=== PATIENT | female | born 1980 | race Caucasian/White ===

== ENCOUNTER 2019-01-31 14:15 | Inpatient (IN) | END 2019-02-03 14:55 | DRG 59 | DX: G35 Multiple sclerosis (principal); H46.9 Unspecified optic neuritis; G83.84 Todd's paralysis (postepileptic); R56.9 Unspecified convulsions; G83.24 Monoplegia of upper limb affecting left nondominant side; E83.51 Hypocalcemia; D72.829 Elevated white blood cell count, unspecified; T38.0X5A Adverse effect of glucocorticoids and synthetic analogues, initial encounter; Y92.230 Patient room in hospital as the place of occurrence of the external cause; F17.210 Nicotine dependence, cigarettes, uncomplicated; Z79.899 Other long term (current) drug therapy ==

== ENCOUNTER 2019-02-03 13:19 | Inpatient (IN) | payer MEDICARE, OTHER ==
[~2019-02-03] VITALS: Ht 167.6 cm; Wt 56.2 kg
[~2019-02-03 13:19] MED LIST: ACET325T53 PO; HYDR-3326 PO; LEVE500T9 PO; MAGN400O6 PO; MENT71OI TOP; NATA300V2 IV; PRED20TA PO
[2019-02-03] MEDS ORDERED: LORAZEPAM 1 MG TABLET PO PRN (15:15)
--- NOTE | 2019-02-03 15:15 | NUR ---
Patient arrived on this at this time via wheelchair, Vitals: 96/59, 96% on room air, 18 respirations, 58 heart rate, no complaints of pain, no signs of distress noted, MISTY Winter made aware of patient's arrival, MD Oconnell made aware of patients arrival on the unit, MRSA swab taken of both nares, patients family states they will take all belongings and won't leave any with the patient, all needs met at this time
[2019-02-03] MEDS ORDERED: Z GUARD REMEDY PASTE 57 GM TUBE TOP PRN (15:30)
[2019-02-03] MEDS ORDERED: HOME MED MISCELLANEOUS XX SCH (15:30)
[2019-02-03] MEDS ORDERED: ACETAMINOPHEN 325 MG TABLET PO PRN (15:30)
[2019-02-03] MEDS ORDERED: MAGNESIUM HYDROXIDE 30 ML LIQUID UDC PO PRN (15:30)
[2019-02-03] MEDS ORDERED: HYDROCODONE/APAP 5-325MG TABLET PO PRN (15:30)
[2019-02-03 16:00] VITALS: BP 96/59
--- NOTE | 2019-02-03 19:45 | NUR ---
Received patient awake in bed, stable condition; AAO x4. Room air, tolerating well. Vital signs are within normal limits. No complaints of pain at this moment. Physical assessment done. Skin assessment done. Fall prevention observed. Bed is in low and locked position, side rails up x2 for safety; bed alarm is on. Call light and frequently used items are within reach. Provided all needed education, including on how to use call light. Family members at bedside. Will continue to monitor and give care.
[2019-02-03] MEDS: levETIRAcetam 500 MG TABLET PO SCH (20:24)
[2019-02-03 20:40] VITALS: BP 99/57
[2019-02-04 05:17] VITALS: BP 99/61
--- NOTE | 2019-02-04 07:53 | NUR ---
Patient noted resting in bed with eyes closed, no facial cues of pain at this time, no signs of distress noted, sister noted at bedside, call light in reach, bed locked and in lowest position, all needs met at this time, will continue to plan of care
[2019-02-04] MEDS ORDERED: predniSONE 20 MG TABLET PO SCH (09:00)
[2019-02-04] MEDS: levETIRAcetam 500 MG TABLET PO SCH ×2 (09:03→20:28)
[2019-02-04] MEDS: predniSONE 20 MG TABLET PO SCH (09:08)
[2019-02-04 09:22] VITALS: BP 110/59
--- NOTE | 2019-02-04 11:36 | NUR ---
Social Work Note: Auditor Appraiser met with patient today and discussed options for counseling and therapy services. Patient's sister, Barbara Rosas and mother Sonia Rosas were present during interview who stated that patient's mood and behaviors at home are very withdrawn and depressed. Also stating that pt does not leave her room or engage in social conversations. Pt's sister, Barbara stated that when pt was in the medical floor a psychiatric evaluation was ordered but not conducted as pt was transferred to [facility]. This technical publications writer informed [facility] case management that pt might need a psychiatric evaluation and the family is requesting it.
[2019-02-04 16:26] VITALS: BP 91/56
[2019-02-04 20:20] VITALS: BP 115/59
--- NOTE | 2019-02-05 04:57 | NUR ---
quiet night. slept well most of the shift. Sister in with patient. No acute distress noted. Call esteban within reach. Fall precautions maintained. VSS. Voiding well. No seizure activity noted. Will monitor patient.
[2019-02-05 05:47] VITALS: BP 101/63
[2019-02-05 07:56] VITALS: BP 93/50
[2019-02-05] MEDS: levETIRAcetam 500 MG TABLET PO SCH ×2 (08:19→20:17)
[2019-02-05] MEDS: predniSONE 20 MG TABLET PO SCH (08:20)
--- NOTE | 2019-02-05 09:43 | NUR ---
Received patient in bed awake, greeted patient; sister also at bed side. Pt. is AAOx4, No acute distress noted. Vital signs taken and stable for patient. Denies any pain at this time. Morning medications administered and tolerated. Patient cooperative with care. Safety measures in place and discussed with patient. Call light left at bed side and will continue with care.
[2019-02-05 15:16] VITALS: BP 111/71
--- NOTE | 2019-02-05 18:39 | NUR ---
Patient in bed watching TV denies pain at this time. Vital signs stable for patient. Patient on PT/OT therapy with one person assist. Family at bed side at all times. Pt. took shower during shift. Needs met, safety measures in place and will continue with care.
--- NOTE | 2019-02-05 20:34 | NUR ---
Received pt resting in bed and talking on the phone. AAO x4. Family at bedside. No acute distress noted. Denies pain/ discomfort. Due med given as ordered. Seizure and fall prevention implemented. Safety measures maintained. Call light and personal items within reach. Will continue to monitor.
[2019-02-05 20:52] VITALS: BP 103/64
[2019-02-06 04:30] VITALS: BP 90/54
[2019-02-06 08:18] VITALS: BP 92/54
[2019-02-06 08:54] LABS: BASOPHILS % (AUTO) 0.1 % (0.0-2.0); EOSINOPHILS # (AUTO) 0.1 K/uL (0.0-0.7); EOSINOPHILS % (AUTO) 1.1 % (0.0-7.0); HEMATOCRIT 39.2 % (31.2-41.9); LYMPHOCYTES # (AUTO) 2.9 K/uL (20.0-40.0); MEAN CORPUSCULAR HEMOGLOBIN 30.2 uug (24.7-32.8); MEAN CORPUSCULAR HGB CONC 33 g/dL (32.3-35.6); MEAN CORPUSCULAR VOLUME 90.7 fL (75.5-95.3); MONOCYTES # (AUTO) 0.3 K/uL (2.0-10.0); MONOCYTES % (AUTO) 3.5 % (0.0-11.0); NEUTROPHILS # (AUTO) 6.5 K/uL (1.8-8.9); NEUTROPHILS % (AUTO) 66.3 % (38.5-71.5); PLATELET COUNT (AUTO) 277 K/uL (179-408); RED BLOOD CELL COUNT(AUTO) 4.32 MIL/uL (3.63-4.92); WHITE BLOOD COUNT (AUTO) 9.9 K/uL (3.8-11.8)
[2019-02-06] MEDS: predniSONE 20 MG TABLET PO SCH (08:59)
[2019-02-06] MEDS: levETIRAcetam 500 MG TABLET PO SCH ×2 (08:59→20:53)
[2019-02-06 09:36] LABS: BILIRUBIN,TOTAL 0.5 mg/dL (0.2-1.0); CREATININE 0.7 mg/dL (0.6-1.3); MAGNESIUM 2.2 mg/dL (1.8-2.4); PHOSPHOROUS 4.5 mg/dL (2.5-4.9); POTASSIUM 3.5 mmol/L (3.5-5.1); TOTAL PROTEIN, SERUM 6.2 g/dL (6.4-8.2)
--- NOTE | 2019-02-06 10:40 | NUR ---
INDIVIDUALIZE OVERALL PLAN OF CARE
[2019-02-06] MEDS: CYANOCOBALAMIN 1000 MCG/ML VIAL IM SCH (12:14)
[2019-02-06 14:58] VITALS: BP 120/73
--- NOTE | 2019-02-06 16:19 | NUR ---
Patient is AAO x 4. No acute distress. able to express needs verbally. No C/O pain at this time. No s/sx of seizure activity noted during shift. Patient toll all meds as scheduled and tolerated. Family (sister) asked for Psych consult for patient. Called sound controller for Psych Dr. Mcgrath spoke with Dr. Mcgrath regarding consultation and informed Dr. patient will be discharged tomorrow on 02/07/19, stated patient needs to F/U with outpatient Psych consult stating he can't see a patient on the same day patient is being discharged. Informed family. All other needs attended, safety measures in place, call light left at bed side and will continue with care.
[2019-02-06 21:39] VITALS: BP 99/70
[2019-02-07 05:55] VITALS: BP 95/63
[2019-02-07 07:53] VITALS: BP 92/51
[2019-02-07] MEDS: predniSONE 20 MG TABLET PO SCH (09:06)
[2019-02-07] MEDS: levETIRAcetam 500 MG TABLET PO SCH ×2 (09:06→21:31)
[2019-02-07] MEDS: CYANOCOBALAMIN 1000 MCG/ML VIAL IM SCH (09:10)
--- NOTE | 2019-02-07 09:31 | NUR ---
PATIENT FOR PSYCH CONSULT. MD MILLARD NOTIFIED. AGREE TO COME. DISCHARGE MOVE GLO FOR PSYCH CONSULT.
[2019-02-07 15:29] VITALS: BP 111/69
--- NOTE | 2019-02-07 18:15 | NUR ---
Patient AAO x4. NO new change of conditions noted. Vital signs are stable for patient. Patient seen by Dr. Mcgrath with no new order. Patient in a process for discharge tomorrow. Patient and family made aware. NO s/sx of seizures noted during shift. ON PT/OT therapy. No c/o pain throughout shift. Family with patient at all times. Needs met, safety measures in place, call light left within easy reach and will continue with care.
--- NOTE | 2019-02-07 19:50 | NUR ---
RECEIVED PATIENT AWAKE IN BED. AO X 4. MOTHER AT THE BEDSIDE. NO COMPLAINTS OF PAIN/ DISCOMFORT. IN NO APPARENT DISTRESS AT THE MOMENT. FALL PRECAUTIONS/ SEIZURE PRECAUTIONS IN PLACE. CALL LIGHT WITHIN REACH. WILL CONTINUE TO MONITOR.
[2019-02-07 20:28] VITALS: BP 108/66
[2019-02-07 22:00] VITALS: BP 108/66
[2019-02-08 05:24] VITALS: BP 94/50
[2019-02-08 07:42] VITALS: BP 96/56
--- NOTE | 2019-02-08 08:00 | NUR ---
Received patient awake in bed. AAOx4. Mother at bedside. No s/s of acute distress. No SOB noted. Seizure precautions observed. Will continue to monitor.
[2019-02-08] MEDS: CYANOCOBALAMIN 1000 MCG/ML VIAL IM SCH (08:55)
[2019-02-08] MEDS: levETIRAcetam 500 MG TABLET PO SCH (08:55)
[2019-02-08] MEDS ORDERED: predniSONE 20 MG TABLET PO SCH (09:00)
--- NOTE | 2019-02-08 10:44 | NUR ---
Social Work Note: ornamental iron worker apprentice met with patient today to reassess her level of depression. Patient continues to minimize her feelings and her presenting problems. ornamental iron worker apprentice provided patient with a list of medicare accepting psychologists and therapists that are available to her.
--- NOTE | 2019-02-08 12:24 | NUR ---
Discharge orders in place. Patient to be discharged to home. Vital signs are stable. No s/s of acute distress. Exit care and education provided regarding new prescription and importance of continuity of care. Patient advised to continue outpatient therapy and f/u with neurologist. ID band removed.
[2019-02-12] MEDS ORDERED: predniSONE 20 MG TABLET PO SCH (09:00)
== END 2019-02-08 12:24 | disposition home or self-care (01) | DRG 60 ==
PROVIDERS: ADMIT Physical Medicine & Rehabilitation Pain Medicine; ATTEND Physical Medicine & Rehabilitation Pain Medicine
DX: G35 Multiple sclerosis (principal); H54.62 Unqualified visual loss, left eye, normal vision right eye; G83.84 Todd's paralysis (postepileptic); G40.909 Epilepsy, unspecified, not intractable, without status epilepticus; F17.210 Nicotine dependence, cigarettes, uncomplicated; R53.1 Weakness; F41.9 Anxiety disorder, unspecified
CPT/HCPCS: 36415; 82652; 83735; 84100; 85025; J3420; J7512

== ENCOUNTER 2019-10-18 18:55 | Inpatient (IN) | payer MEDICARE, OTHER ==
[~2019-10-18] VITALS: Ht 172.7 cm; Wt 51.9 kg
[2019-10-18 19:40] LABS: BASOPHILS # (AUTO) 0.1 K/uL (0.0-8.0); BASOPHILS % (AUTO) 1.2 % (0.0-2.0); EOSINOPHILS # (AUTO) 0.1 K/uL (0.0-0.7); EOSINOPHILS % (AUTO) 0.7 % (0.0-7.0); HEMATOCRIT 37.9 % (31.2-41.9); HEMOGLOBIN 12.8 g/dL (10.9-14.3); LYMPHOCYTES # (AUTO) 2.6 K/uL (20.0-40.0); LYMPHOCYTES % (AUTO) 24.7 % (20.5-51.5); MEAN CORPUSCULAR HEMOGLOBIN 30.3 uug (24.7-32.8); MEAN CORPUSCULAR HGB CONC 34 g/dL (32.3-35.6); MEAN CORPUSCULAR VOLUME 89.8 fL (75.5-95.3); MONOCYTES # (AUTO) 0.7 K/uL (2.0-10.0); MONOCYTES % (AUTO) 7.1 % (0.0-11.0); NEUTROPHILS # (AUTO) 6.9 K/uL (1.8-8.9); NEUTROPHILS % (AUTO) 66.3 % (38.5-71.5); PLATELET COUNT (AUTO) 238 K/uL (179-408); RED BLOOD CELL COUNT(AUTO) 4.21 MIL/uL (3.63-4.92); WHITE BLOOD COUNT (AUTO) 10.5 K/uL (3.8-11.8)
[2019-10-18 19:47] LABS: CARBON DIOXIDE 19 mmol/L (21-32); CHLORIDE 101 mmol/L (98-107); CREATININE 0.8 mg/dL (0.6-1.3); GLUCOSE 102 mg/dL (74-106); POTASSIUM 3.3 mmol/L (3.5-5.1); UREA NITROGEN, BLOOD 9 mg/dL (7-18)
[2019-10-18 19:53] LABS: ALANINE AMINOTRANSFERASE 15 U/L (14-59); ALKALINE PHOSPHATASE 51 U/L (50-136); ASPARTATE AMINOTRANSFERASE 10 U/L (15-37); BILIRUBIN,DIRECT 0.2 mg/dL (0.0-0.2); BILIRUBIN,TOTAL 0.8 mg/dL (0.2-1.0)
[2019-10-18 19:54] LABS: ETHANOL < 3 MG/DL (0-0)
[2019-10-18] MEDS ORDERED: MORPHINE SULFATE 2 MG/1 ML DISP.SYRIN IV PRN (21:45)
[2019-10-18] MEDS ORDERED: ACETAMINOPHEN 325 MG TABLET PO PRN (21:45)
[2019-10-18] MEDS ORDERED: ONDANSETRON 4 MG/2 ML VIAL IV PRN (21:45)
[2019-10-18] MEDS ORDERED: MAGNESIUM HYDROXIDE 30 ML LIQUID UDC PO PRN (21:45)
[2019-10-18] MEDS ORDERED: TEMAZEPAM 15 MG CAPSULE PO PRN (21:45)
[2019-10-18 22:08] VITALS: BP 103/62
[2019-10-18] MEDS: IV NS 1000 ML 1,000 ML IV PRN (22:51)
[2019-10-18] MEDS: POTASSIUM CHLORIDE 50 ML IV SCH ×2 (22:52→23:56)
[2019-10-19] MEDS: LORAZEPAM 2 MG/1 ML VIAL IV PRN ×2 (00:16→19:06)
[2019-10-19 00:44] VITALS: BP 106/67
[2019-10-19] MEDS ORDERED: LORAZEPAM 2 MG/1 ML VIAL IV ONE (02:30)
[2019-10-19] MEDS ORDERED: levETIRAcetam IV 1,000 MG in IV DEXTROSE 5% 100 ML IV SCH (02:30)
[2019-10-19 05:25] VITALS: BP 92/57
[2019-10-19 07:51] LABS: BASOPHILS # (AUTO) 0.1 K/uL (0.0-8.0); BASOPHILS % (AUTO) 0.7 % (0.0-2.0); EOSINOPHILS % (AUTO) 0.4 % (0.0-7.0); HEMATOCRIT 35.5 % (31.2-41.9); HEMOGLOBIN 12.2 g/dL (10.9-14.3); LYMPHOCYTES # (AUTO) 1.8 K/uL (20.0-40.0); LYMPHOCYTES % (AUTO) 19.5 % (20.5-51.5); MEAN CORPUSCULAR HEMOGLOBIN 30.3 uug (24.7-32.8); MEAN CORPUSCULAR HGB CONC 34 g/dL (32.3-35.6); MEAN CORPUSCULAR VOLUME 88.3 fL (75.5-95.3); MONOCYTES # (AUTO) 0.7 K/uL (2.0-10.0); MONOCYTES % (AUTO) 7.3 % (0.0-11.0); NEUTROPHILS # (AUTO) 6.5 K/uL (1.8-8.9); NEUTROPHILS % (AUTO) 72.1 % (38.5-71.5); PLATELET COUNT (AUTO) 195 K/uL (179-408); RED BLOOD CELL COUNT(AUTO) 4.02 MIL/uL (3.63-4.92)
[2019-10-19] MEDS: PANTOPRAZOLE SODIUM 40 MG VIAL IV SCH (08:11)
[2019-10-19] MEDS: levETIRAcetam IV 1,000 MG in IV DEXTROSE 5% 100 ML IV SCH ×2 (08:11→20:12)
[2019-10-19 08:33] LABS: CARBON DIOXIDE 29 mmol/L (21-32); CHLORIDE 105 mmol/L (98-107); CREATININE 0.5 mg/dL (0.6-1.3); GLUCOSE 85 mg/dL (74-106); PHOSPHOROUS 2.8 mg/dL (2.5-4.9); POTASSIUM 3.8 mmol/L (3.5-5.1); UREA NITROGEN, BLOOD 7 mg/dL (7-18)
[2019-10-19] MEDS: HYDROCODONE/APAP 5-325MG TABLET PO PRN ×2 (08:50→20:58)
[2019-10-19] MEDS: IV NS 1000 ML 1,000 ML IV PRN ×3 (10:24→20:36)
[2019-10-19 11:30] VITALS: BP 95/47
[2019-10-19 15:20] VITALS: BP 90/55
[2019-10-19] MEDS: NICOTINE 14 MG/24HR PATCH TD SCH (20:11)
[2019-10-19 20:17] VITALS: BP 96/57
[2019-10-20 00:35] VITALS: BP 100/59
[2019-10-20] MEDS: LORAZEPAM 2 MG/1 ML VIAL IV PRN ×2 (01:51→18:09)
[2019-10-20 04:13] VITALS: BP 110/64
[2019-10-20] MEDS: IV NS 1000 ML 1,000 ML IV PRN (06:37)
[2019-10-20 08:03] VITALS: BP 96/57
[2019-10-20] MEDS: levETIRAcetam 500 MG/5 ML LIQUID UDC NG SCH ×2 (09:23→20:27)
[2019-10-20] MEDS: PANTOPRAZOLE SODIUM 40 MG VIAL IV SCH (09:23)
[2019-10-20] MEDS: NICOTINE 14 MG/24HR PATCH TD SCH (09:23)
[2019-10-20 12:00] VITALS: BP 92/55
[2019-10-20 16:00] VITALS: BP 95/58
[2019-10-20 19:55] VITALS: BP 95/57
[2019-10-21] MEDS ORDERED: levETIRAcetam 500 MG/5 ML LIQUID UDC PO SCH (06:22)
[2019-10-21 06:45] VITALS: BP 99/58
[2019-10-21] MEDS ORDERED: PANTOPRAZOLE SODIUM 40 MG TABLET.DR PO SCH (07:00)
[2019-10-21 07:35] LABS: BASOPHILS # (AUTO) 0.1 K/uL (0.0-8.0); BASOPHILS % (AUTO) 0.8 % (0.0-2.0); EOSINOPHILS # (AUTO) 0.1 K/uL (0.0-0.7); HEMATOCRIT 33.6 % (31.2-41.9); HEMOGLOBIN 11.6 g/dL (10.9-14.3); LYMPHOCYTES # (AUTO) 1.7 K/uL (20.0-40.0); LYMPHOCYTES % (AUTO) 23.9 % (20.5-51.5); MEAN CORPUSCULAR HEMOGLOBIN 30.4 uug (24.7-32.8); MEAN CORPUSCULAR HGB CONC 35 g/dL (32.3-35.6); MEAN CORPUSCULAR VOLUME 87.9 fL (75.5-95.3); MONOCYTES # (AUTO) 0.5 K/uL (2.0-10.0); MONOCYTES % (AUTO) 7.4 % (0.0-11.0); NEUTROPHILS # (AUTO) 4.7 K/uL (1.8-8.9); NEUTROPHILS % (AUTO) 65.9 % (38.5-71.5); PLATELET COUNT (AUTO) 189 K/uL (179-408); RED BLOOD CELL COUNT(AUTO) 3.82 MIL/uL (3.63-4.92); WHITE BLOOD COUNT (AUTO) 7.1 K/uL (3.8-11.8)
[2019-10-21 07:40] LABS: CREATININE 0.6 mg/dL (0.6-1.3); POTASSIUM 3.7 mmol/L (3.5-5.1)
[2019-10-21] MEDS ORDERED: LEVE500T9 PO (09:04)
[2019-10-21] MEDS: NICOTINE 14 MG/24HR PATCH TD SCH (11:07)
[2019-10-21 11:45] VITALS: BP 92/55
[2019-10-21 16:00] VITALS: BP 93/55
== END 2019-10-21 16:40 | disposition home health service (06) | DRG 101 ==
LOC: ER 18:55 → TELE3 21:36 → MEDSURG3 10-20 08:45
PROVIDERS: ADMIT Nurse Practitioner Acute Care; ATTEND Nurse Practitioner Acute Care
DX: G40.909 Epilepsy, unspecified, not intractable, without status epilepticus (principal); G35 Multiple sclerosis; E87.6 Hypokalemia; E83.51 Hypocalcemia; F17.210 Nicotine dependence, cigarettes, uncomplicated; D72.829 Elevated white blood cell count, unspecified; Z71.6 Tobacco abuse counseling
CPT/HCPCS: 36415; 70450; 83735; 84100; 85025; 93005; A4663; C9113; G0378; G0480; J1953; J2060; J3480; J7030; J7060